=== PATIENT | female | born 1990 ===

== ENCOUNTER 2016-12-20 10:40 | Emergency (ER) | payer OTHER ==
[2016-12-20 11:55] VITALS: BMI 26.6
[2016-12-20] MEDS: Lactated Ringer's 1,000 ML IV SCH ×2 (13:15→16:07)
[2016-12-20 13:19] LABS: RBC URINE 2 /hpf (0-3); URINE BACTERIA RARE (<OCC); URINE BILIRUBIN NEGATIVE (NEGATIVE); URINE BLOOD NEGATIVE (NEGATIVE); URINE COLOR YELLOW (YELLOW); URINE GLUCOSE (UA) NEG (Normal); URINE KETONE TRACE mg/dL (NEGATIVE); URINE LEUKOCYTE ESTERASE NEG Leu/uL (Negative); URINE PROTEIN NEGATIVE (NEGATIVE); URINE UROBILINOGEN 0.2-1.0 mg/dL (0.2-1.0); WBC URINE 1 /hpf (0-5)
[2016-12-20] MEDS ORDERED: Betamethasone Soluspan 30 mg/5mL Inj Susp IM ONE (15:56)
--- NOTE | 2016-12-20 16:10 | OBHP ---
Datetime: 12/20/2016 12:29 Admit Comment, IP Provider: 26 yo g1 edc 12/20 @ 33.1wks w/ c/o menstrual type cramps with onset @ 8: 30 this am. She states last episode of cramping was Th night with spont resolution. She denies a bd trauma, srom, bleeding or decreased movement. Last coitus 30hrs ago. States obhx is uncompl icated. pmhx: denies shx: denies etoh, drugs or tobacco use nkda medic: pnv pshx: T_A I: 331.1wk No evidence of PTL P: u/a pt d/w dr antonio addendum: s:denies increased pain of cramping irreg ctxs noted on fms ffn neg repeat VE @ 16:00 cl/th/h p: pt d/w dr antonio betameth x1 today; repeat in 24hr ptl precautions pelvic rest until 37wks f/u with dr antonio in 2days rx colace for contipation. increase fruit andveget intake Pelvic Type - PN: Adequate Extremities - PN: Normal Abdomen - PN: Normal Heart - PN: Normal Neurologic - PN: Normal HEENT - PN: Normal General - PN: Normal FHR - Baseline A Provider: 130 NICHD Variability Prov Fetus A: Moderate 6-25bpm NICHD Accel Fetus A IP Provider: 15X15 FHR Category Provider Fetus A: Category I NICHD Decel Fetus A IP Provider: None Dilatation, Provider: 0 Effacement, Provider: 0 Station, Provider: -4 Genitourinary Exam: Normal
[2016-12-21] MEDS ORDERED: Betamethasone Soluspan 30 mg/5mL Inj Susp IM ONE (16:46)
== END 2016-12-20 16:40 | disposition home or self-care (01) ==
LOC: H.EROB2 10:40 → H.L&D 11:27 → H.EROB2 16:40
DX: O47.03 False labor before 37 completed weeks of gestation, third trimester (principal); Z3A.33 33 weeks gestation of pregnancy

== ENCOUNTER 2016-12-21 16:00 | Emergency (ER) | payer OTHER ==
[2016-12-21 16:45] VITALS: BMI 28.6
[2016-12-21] MEDS ORDERED: Betamethasone Soluspan 30 mg/5mL Inj Susp IM ONE (17:40)
--- NOTE | 2016-12-21 19:05 | OBHP ---
Datetime: 12/21/2016 16:50 IP Adm Impression: , intrauterine ; No Active Labor IP Admit Plan: Observation/Evaluation; Discharge home Admit Comment, IP Provider: 26 yo g1 edc 12/20 @ 33+wks came for second Steroid dose. Today +FM;l no CTX; no VB. Yesterday FFN neg; given steroid dose. States obhx is uncomplicated. pmhx: denies shx: denies etoh, drugs or tobacco use nkda medic: pnv pshx: T_A I: 33+w Threatened PTL pt d/w dr antonio -will given second dose and pt to follow up as scheduled in 1w Abdomen - PN: Normal Lungs - PN: Normal Heart - PN: Normal General - PN: Normal FHR - Baseline A Provider: 135 Comments, ACOG Physical Exam: ROS: General: no weakness; no fatigue HEENT: no T[place]; no visual dist CV: no palpitations; no no CP GI: no N/V no diarhea No epigastric pain; non radiating : no F/U/D MS: No joint pain Pool Provider: Negative IP Hx Assessment: The History has been Reviewed and is Current EGA AdmitDate IP: 33.2 Vital Signs Provider: Reviewed IP Chief Complaint: Other NICHD Variability Prov Fetus A: Moderate 6-25bpm NICHD Accel Fetus A IP Provider: 15X15 FHR Category Provider Fetus A: Category I NICHD Decel Fetus A IP Provider: None
[2016-12-28 13:24] VITALS: BP 127/67; PULSE 104; RESP 18; TEMP 98.4; O2SAT 100
== END 2016-12-21 17:55 | disposition home or self-care (01) ==
LOC: H.EROB2 16:00
DX: O47.9 False labor, unspecified (principal); Z23 Encounter for immunization

== ENCOUNTER 2017-02-10 05:18 | Inpatient (IN) | payer OTHER ==
[2017-02-10 07:31] VITALS: BMI 30.5
[2017-02-10] MEDS ORDERED: Lactated Ringer's 1,000 ML IV SCH (08:00)
--- NOTE | 2017-02-10 08:24 | OBADHP ---
Datetime: 02/10/2017 07:00 Admit Comment, IP Provider: CC: ROM, CTX HPI: 26 yo at 40.4 wks via US +CTX, ROM, FM; -: VB last US 02/08/2017 lastvisit 02/07/2017 At 04:30 this morning, she shared a gush of clear fluid per vagina. + ctx Past ob nhone past gyne: denies STI; pap in 05/2016 neg pmh: none psurg: tonsillectomy at 14 yo soc: negative for smoking, alcohol or illicit drugs meds: pnv Allergies: NKDA VITAls: 122/70 83 100% PE: General: pleasant, in no acute distress HEENT: normocephalic, PERRLA; AAOx3 Heart: no murmurs, regular rate and rhythm, S1, S2 normal. Lungs: clear to auscultation bilaterally, no wheezing Abdomen: nontender, gravid CVA: negative Lower extremities: negative for pitting edema Bedside US: fetus in vertex postion Pelvic exam: pooling of amniotic fluid in vaginal canal; Cervix 2cm dilated; 70 % effaced; -3 posi tion monitor: moderate variability; accel: 15x15; no decel; FHR: 130 Assessment: 26 yo F IUP at 40.4 wks Plan: d/w Dr. Garcia: GUILLE PGY1 Pelvic Type - PN: Adequate Extremities - PN: Normal Abdomen - PN: Normal Back - PN: Normal Breast - PN: Normal Lungs - PN: Normal Heart - PN: Normal Thyroid - PN: Not Done Neurologic - PN: Normal HEENT - PN: Normal General - PN: Normal FHR - Baseline A Provider: 130 Amniotic Fluid Color, Provider: Clear Membranes, Provider: Ruptured Contraction Comments Provider: x4 minutes Pool Provider: Positive IP Hx Assessment: The History has been Reviewed and is Current Vital Signs Provider: Reviewed; Within Normal Limits IP Chief Complaint: Uterine contractions; Suspected ruptured membranes NICHD Variability Prov Fetus A: Moderate 6-25bpm NICHD Accel Fetus A IP Provider: 15X15 FHR Category Provider Fetus A: Category I NICHD Decel Fetus A IP Provider: None Dilatation, Provider: 2 Effacement, Provider: 70 Station, Provider: -3 Genitourinary Exam: Normal DTRs - PN: Not Done EGA AdmitDate IP: 40.4 IP Adm Impression: Term, intrauterine ; Ruptured Membranes IP Admit Plan: Admit to unit; Initiate labor augmentation protocol Datetime: 12/21/2016 16:50 Comments, ACOG Physical Exam: ROS: General: no weakness; no fatigue HEENT: no [place]; no visual dist CV: no palpitations; no no CP GI: no N/V no diarhea No epigastric pain; non radiating : no F/U/D MS: No joint pain
[2017-02-10] MEDS: Lactated Ringer's 1,000 ML IV SCH ×2 (09:00→15:00)
[2017-02-10] MEDS ORDERED: Oxytocin 30 units/LR 500ML 30 U/500 ML BAG IV ONE (10:00)
[2017-02-10 10:20] LABS: BASO # 0.1 K/uL (0.0-0.2); BASO % 0.9 % (0.0-2.0); EOS # 0.2 K/uL (0.0-0.7); EOS % 1.6 % (0.0-4.0); LYMPH # 2.2 K/uL (1.0-4.3); LYMPH % 22.6 % (20.0-40.0); MEAN CELL VOLUME 92.9 fl (81.0-99.0); MEAN CORPUSCULAR HEMOGLOBIN 31.4 pg (27.0-31.0); MEAN CORPUSCULAR HGB CONC 33.8 g/dL (33.0-37.0); MEAN PLATELET VOLUME 9.8 fl (7.2-11.7); MONO # 0.6 K/uL (0.0-0.8); MONO % 6.6 % (0.0-10.0); NEUT # 6.6 K/uL (1.8-7.0); NEUT % 68.3 % (50.0-75.0); NRBC % 0.1 % (0.0-0.0); RED CELL DISTRIBUTION WIDTH 13.4 % (11.5-14.5); WHITE BLOOD COUNT 9.6 K/uL (4.8-10.8)
[2017-02-10] MEDS ORDERED: Fentanyl/Bupivacaine HCl 250 ML EPI ONE (10:42)
[2017-02-10] MEDS ORDERED: ePHEDrine 50 mg/ml Inj ONE (10:43)
[2017-02-10] MEDS ORDERED: Bupivacaine HCl 0.25% PF (10 ml) Inj ONE (10:43)
[2017-02-10] MEDS ORDERED: Lidocaine 1% Inj (20ml) ONE (19:41)
[2017-02-11] MEDS ORDERED: Oxytocin 30 units/LR 500ML 30 U/500 ML BAG IV ONE ×2 (00:58)
--- NOTE | 2017-02-11 01:33 | OBDS ---
DELIVERY PERSONNEL Delivery Doctor: Jone Garcia MD Scrub Nurse: Cindy Betts English Language Arts Teacher: Katina Robertson RN Anesthesiologist: Rajan Espinoza MD MATERNAL INFORMATION Delivery Anesthesia: Epidural Medications in Delivery: 30 units of pitocin Estimated Blood Loss (ml): 250cc Placenta Cultured: No Maternal Complications: None Provider Comments: Delivered a living baby girl appears term but LGA cried spontaneously tone slight ly depressed in the first minute or less but then parts picker good AF clear, placenta complete and intact delivered spontanously Episiotomy done and repaired as above, no complications Uterus contracted wel l, no laceration in cx, vagina or perineum seen. Tolerated procedure well, no complications. Recta l done no defects LABOR SUMMARY EDC: 02/06/2017 00:00 No. Babies in Womb: 1 Attempted: No Labor Anesthesia: Epidural LABOR INFORMATION Reason for Induction: Not Applicable Onset of Labor: 02/10/2017 04:30 Complete Dilatation: 02/10/2017 23:30 Oxytocin: Augmentation Group B Beta Strep: Negative Steroids Given: None Reason Steroids Not Administered: Not Applicable MEMBRANES Membranes Rupture Method: Spontaneous Rupture of Membranes: 02/10/2017 04:30 Length of Rupture (hrs): 20.38 Amniotic Fluid Color: Clear Amniotic Fluid Amount: Scant Amniotic Fluid Odor: Normal STAGES OF LABOR Stage 1 hrs: 19 Stage 1 min: 0 Stage 2 hrs: 1 Stage 2 min: 23 Stage 3 hrs: -167 Stage 3 min: -55 Total Time in Labor hrs: -147 Total Time in Labor min: -32 VAGINAL DELIVERY Episiotomy: Median Laceration Extension: N/A Laceration Type: None Laceration Repair: Not Applicable Laceration Repair Note: repaired a medial second dg episiotomy with 2-0 chromic interrupted and cont inously without any complications Initial Vag Sponge Count: 5 Final Vag Sponge Count: 5 Initial Vag Sharps Count: 2 Final Vag Sharps Count: 2 Sponge Count Correct: Yes; Vaginal Sweep Performed Sharps Count Correct: Yes Count Comment: count correct CSECTION DELIVERY Primary Indication: N/A Secondary Indication: N/A CSection Incision: N/A BABY A INFORMATION Infant Delivery Date/Time: 02/11/2017 00:53 Method of Delivery: Vaginal Born in Route : No : N/A Forceps: N/A Vacuum Extraction: N/A Shoulder Dystocia : No SHOULDER DYSTOCIA BABY A Delivery Date/Time: 02/11/2017 00:53 PRESENTATION/POSITION BABY A Presentation: Cephalic Cephalic Presentation: Vertex Breech Presentation: N/A PLACENTA INFORMATION BABY A Placenta Delivery Time : 02/04/2017 00:58 Placenta Method of Delivery: Spontaneous Placenta Status: Delivered SCORES BABY A Heart Rate 1 min: >100 bpm Resp Effort 1 min: Good Cry Reflex Irritability 1 min: Cough or Sneeze or Pulls Away Muscle Tone 1 min: Some Flexion of Extremities Color 1 min: Body Sunflower, Extremities Blue Resuscitation Effort 1 min: Tactile Stimulation SCORE 1 MIN: 8 Heart Rate 5 min: >100 bpm Resp Effort 5 min: Good Cry Reflex Irritability 5 min: Cough or Sneeze or Pulls Away Muscle Tone 5 min: Active Motion Color 5 min: Body Sunflower, Extremities Blue Resuscitation Effort 5 min: N/A SCORE 5 MIN: 9 INFANT INFORMATION BABY A Gestational Age at Delivery: 40.5 Gestational Status: Term Outcome : Liveborn Infant Condition : Stable Infant Sex: Female IDENTIFICATION/MEDS BABY A ID Band Number: [id number] ID Band Location: Left Leg; Left Arm WEIGHT/LENGTH BABY A Infant Birthweight (gms): 3910 Infant Weight (lb): 8 Infant Weight (oz): 10 CORD INFORMATION BABY A No. Cord Vessels: 3 Nuchal Cord : N/A Nuchal Cord Other: N/A True Knot: N/A Cord pH Baby Arterial: N/A Cord pH Baby Venous: N/A Cord Blood Taken: Yes Banking/Donate Info: N/A Suction: Mouth; Nose ASSESSMENT BABY A Complications: None Physical Findings at Delivery: Within Normal Limits; Caput Succedaneum Physical Findings Other: immediate skin to skin performed Infant Respirations: Appears Normal Spray Gun Repairer Helper/ALS Called : No Care By: Petra Cha Transferred To: Remains with Mother
[2017-02-11] MEDS ORDERED: Benzocaine/Menthol SPRAY TOP PRN (01:37)
[2017-02-11] MEDS ORDERED: Oxycodone/Acetaminophen 5/325 mg Tab PO PRN ×4 (01:37→03:30)
[2017-02-11] MEDS: Benzocaine/Menthol SPRAY TOP PRN (03:42)
[2017-02-11 11:12] LABS: HEMATOCRIT 29.1 % (34.0-47.0); MEAN CELL VOLUME 93.8 fl (81.0-99.0); MEAN CORPUSCULAR HEMOGLOBIN 30.3 pg (27.0-31.0); MEAN CORPUSCULAR HGB CONC 32.3 g/dL (33.0-37.0); RED CELL DISTRIBUTION WIDTH 13.7 % (11.5-14.5); WHITE BLOOD COUNT 15.6 K/uL (4.8-10.8)
[2017-02-13] MEDS: Benzocaine/Menthol SPRAY TOP PRN (08:28)
--- NOTE | 2017-02-13 11:05 | OBPPN ---
Datetime: 02/13/2017 10:57 PP Pain Prov: Within normal limits PP Pain Prov comment: no SOB, chest pains or leg pains PP Nausea Prov: Denies PP Flatus Prov: Yes PP Nausea Prov comment: no headaches or visual disturbances PP Breasts Prov: Normal PP Lungs Prov: Normal PP Abdomen/Uterus Prov: Abnormal PP Lochia Prov: Normal PP Vulva/Perineum Prov: Abnormal PP CVA Tenderness Prov: Normal PP Extremities Prov: Abnormal PP C/S Incision Prov: Not Applicable PP Progress Prov: Normal PP Comments Phys Exam Prov: breast not engorged, NT, Abd soft ND fundus firm NT Perineum repaired Ext mild bilateral edema no calf tenderness PP Impression Prov: Normal progression PP Plan Prov: Discharge PP Progress Note Prov: D/C home with instructions and follow up offfice 4-6 wks IP PP Procedures: None Datetime: 02/12/2017 10:45 PP BM Prov: No PP Heart Prov: Normal
--- NOTE | 2017-02-13 11:07 | OBDCSUM ---
Datetime: 02/13/2017 11:04 Discharged to, Provider: Home Follow up at, Provider: Dr Garcia Disch Instr Activity: Bedrest; May be up to bathroom; May be up for meals; May Shower Disch Instr Diet: Regular Discharge Instructions, Provider: Routine instructions given Discharge Diagnosis, Provider: Term Delivered Discharge Time: 02/13/2017 11:04 Follow up in weeks, Provider: 4-6 wks office Disch Referrals: None Contraception discussed, Prov: Yes Disch Activity Restrictions: No exercising; No lifting; No driving; Minimize walking; Minimize stair -climbing; No sexual activity; Nothing in vagina - [place], tampons, douche Discharge Comment, Provider: continue PP care and PNC vit and iron Contraception after Delivery: Undecided Datetime: 12/21/2016 17:55 Discharge Diagnosis, Provider: Term Delivered
[2017-02-13 18:03] VITALS: BP 140/76; PULSE 83; RESP 20; TEMP 97.9; O2SAT 97
== END 2017-02-13 12:20 | disposition home or self-care (01) | DRG 775 ==
LOC: H.EROB2 05:18 → H.L&D 08:00 → H.OB/GYN 02-11 03:27
PROVIDERS: ADMIT Specialist; ATTEND Specialist
PROC: 4A1HXCZ Monitoring of Products of Conception, Cardiac Rate, External Approach (ICD-10-PCS; 2017-02-10)
PROC: 0W8NXZZ Division of Female Perineum, External Approach (ICD-10-PCS; principal; 2017-02-11)
PROC: 10E0XZZ Delivery of Products of Conception, External Approach (ICD-10-PCS; 2017-02-11)
DX: O48.0 Post-term pregnancy (principal); O36.63X0 Maternal care for excessive fetal growth, third trimester, not applicable or unspecified; Z37.0 Single live birth; Z3A.40 40 weeks gestation of pregnancy